=== PATIENT | male | born 1945 | race Caucasian/White ===

== ENCOUNTER 2025-04-21 03:20 | Inpatient (IN) | payer BC, MEDICARE, OTHER ==
[2025-04-21] MEDS ORDERED: dilTIAZem 25 MG/5 ML VIAL ONE (04:01)
[2025-04-21 04:05] LABS: #Basophils 0.04 10x3/uL (0.0-0.2); #Eosinophils 0.33 10x3/uL (0.0-0.7); #Monocytes 0.88 10x3/uL (0.11-0.59); #Neutrophils 6.45 10x3/uL (1.40-6.50); %Basophils 0.4 % (0.0-1.0); %Eosinophils 3.5 % (0.0-10.0); %Lymphocytes 19.2 % (21.0-51.0); %Monocytes 9.2 % (0.0-10.0); %Neutrophils 67.5 % (42.0-75.0); Hematocrit 48.0 % (42.0-52.0); Hemoglobin 15.9 g/dL (14.0-18.0); Mean Corpuscular Hemoglobin 28.4 pg (27.0-31.0); Mean Corpuscular Volume 85.9 fL (78.0-98.0); Platelet Count 204 10x3/uL (130-400); Red Blood Cell (RBC) Count 5.59 mill/uL (4.70-6.10); White Blood Cell (WBC) Count 9.56 10x3/uL (4.8-10.8)
[2025-04-21] MEDS ORDERED: diphenhydrAMINE 50 MG/ML VIAL ONE (04:12)
[2025-04-21] MEDS ORDERED: Metoclopramide HCl 10 MG (2 mL) VIAL ONE (04:12)
[2025-04-21 04:22] LABS: INR-International Normal Ratio 1.2; Prothrombin Time 15.2 sec (12.0-14.7)
[2025-04-21 04:23] LABS: PTT 32.9 sec (22.9-36.1)
[2025-04-21 04:39] LABS: Magnesium 2.2 mg/dL (1.6-2.6)
[2025-04-21 04:40] LABS: ALT (SGPT) 30 U/L (Less than 45); AST (SGOT) 32 U/L (11-34); Albumin 4.1 g/dL (3.1-4.5); Alkaline Phosphatase 55 U/L (40-110); Anion Gap 18 mmol/L (10-20); BUN (Urea Nitrogen) 35 mg/dL (8.4-25.7); Bilirubin, Total 0.5 mg/dL (0.3-1.2); Calc. Creatinine Clearance 0 mL/min (70-130); Calcium 9.5 mg/dL (7.8-10.44); Carbon Dioxide 20 mmol/L (23-31); Chloride 109 mmol/L (98-107); Globulin 3.0 g/dL (2.4-3.5); Glucose 201 mg/dL (83-110); Potassium 4.5 mmol/L (3.5-5.1); Sodium 142 mmol/L (136-145)
[2025-04-21] MEDS ORDERED: Acetaminophen 325 MG TAB PO PRN (06:03)
[2025-04-21] MEDS ORDERED: Guaifenesin DM 100-10/5 ML UDCUP PO PRN (06:03)
[2025-04-21] MEDS ORDERED: Calcium Carbonate 500 MG ChewTAB PO PRN (06:03)
[2025-04-21] MEDS ORDERED: Melatonin 3 MG TAB PO PRN (06:03)
[2025-04-21] MEDS ORDERED: Senokot S 8.6-50 MG TAB PO PRN (06:03)
[2025-04-21] MEDS ORDERED: Enoxaparin 80 MG (0.8 mL) SYRINGE ONE (06:11)
[2025-04-21] MEDS ORDERED: Enoxaparin 100 MG (1 mL) SYRINGE ONE (06:12)
[2025-04-21] MEDS ORDERED: Magnesium Sulfate In Water 4 GM in Premix 1 BAG IVPB PRN (06:15)
[2025-04-21] MEDS ORDERED: PHOS-NAK 1 PKT PACK PO PRN (06:15)
[2025-04-21] MEDS ORDERED: Electrolyte Replacement Protocol 1 EACH FS SCH (06:15)
[2025-04-21] MEDS ORDERED: Potassium Chloride 20 MEQ in Premix 1 BAG IVPB PRN (06:15)
[2025-04-21] MEDS ORDERED: Aspirin Chewable 81 MG TAB ONE (07:25)
[2025-04-21] MEDS ORDERED: Glucagon 1 MG/ML KIT IM PRN (08:42)
[2025-04-21] MEDS ORDERED: Dextrose 50% Abboject 50 ML SYRINGE SLOW IVP PRN (08:42)
[2025-04-21] MEDS: Aspirin 81 mg Enteric Coated Tablet PO SCH (09:23)
[2025-04-21] MEDS ORDERED: Iopamidol 370 76% 100 ML VIAL ONE (09:45)
[2025-04-21 09:46] VITALS: BMI 28.1
[2025-04-21] MEDS: Losartan 25 MG TAB PO SCH (09:56)
[2025-04-21] MEDS: HYDROcodone/Acetaminophen 5/325 mg Tablet PO PRN (12:23)
[2025-04-21] MEDS: Enoxaparin 100 MG (1 mL) SYRINGE SC SCH (16:35)
[2025-04-21] MEDS: Carvedilol 25 MG TAB PO SCH (16:36)
[2025-04-21] MEDS: Rosuvastatin 20 MG TAB PO SCH (20:46)
[2025-04-21] MEDS: Magnesium Oxide 400 MG TAB PO SCH (20:47)
[2025-04-22 04:39] LABS: #Basophils 0.05 10x3/uL (0.0-0.2); #Eosinophils 0.27 10x3/uL (0.0-0.7); #Monocytes 0.80 10x3/uL (0.11-0.59); #Neutrophils 4.96 10x3/uL (1.40-6.50); %Basophils 0.6 % (0.0-1.0); %Eosinophils 3.4 % (0.0-10.0); %Lymphocytes 22.1 % (21.0-51.0); %Monocytes 10.2 % (0.0-10.0); %Neutrophils 63.2 % (42.0-75.0); Hematocrit 41.4 % (42.0-52.0); Hemoglobin 13.2 g/dL (14.0-18.0); Mean Corpuscular Hemoglobin 28.6 pg (27.0-31.0); Mean Corpuscular Volume 89.6 fL (78.0-98.0); Platelet Count 146 10x3/uL (130-400); Red Blood Cell (RBC) Count 4.62 mill/uL (4.70-6.10); White Blood Cell (WBC) Count 7.86 10x3/uL (4.8-10.8)
[2025-04-22 04:53] LABS: ALT (SGPT) 25 U/L (Less than 45); AST (SGOT) 43 U/L (11-34); Albumin 3.4 g/dL (3.1-4.5); Alkaline Phosphatase 44 U/L (40-110); Anion Gap 11 mmol/L (10-20); BUN (Urea Nitrogen) 28 mg/dL (8.4-25.7); Bilirubin, Total 0.5 mg/dL (0.3-1.2); Calc. Creatinine Clearance 52 mL/min (70-130); Calcium 8.4 mg/dL (7.8-10.44); Carbon Dioxide 24 mmol/L (23-31); Chloride 112 mmol/L (98-107); Globulin 2.6 g/dL (2.4-3.5); Glucose 189 mg/dL (83-110); Potassium 4.3 mmol/L (3.5-5.1); Sodium 143 mmol/L (136-145)
[2025-04-22] MEDS: Furosemide 40 MG TAB PO SCH (09:44)
[2025-04-22] MEDS: Aspirin 81 mg Enteric Coated Tablet PO SCH (09:44)
[2025-04-22] MEDS: Insulin Glargine 30 UNITS/0.3 ML VIAL SC SCH (09:45)
[2025-04-22] MEDS: Cholecalciferol 1,000 UNITS (25 MCG) TAB PO SCH (10:06)
[2025-04-22] MEDS: Enoxaparin 100 MG (1 mL) SYRINGE SC SCH (16:19)
[2025-04-23 04:42] LABS: #Basophils 0.04 10x3/uL (0.0-0.2); #Eosinophils 0.27 10x3/uL (0.0-0.7); #Monocytes 0.74 10x3/uL (0.11-0.59); #Neutrophils 4.97 10x3/uL (1.40-6.50); %Basophils 0.5 % (0.0-1.0); %Eosinophils 3.5 % (0.0-10.0); %Lymphocytes 21.4 % (21.0-51.0); %Monocytes 9.6 % (0.0-10.0); %Neutrophils 64.6 % (42.0-75.0); Hematocrit 42.4 % (42.0-52.0); Hemoglobin 13.8 g/dL (14.0-18.0); Mean Corpuscular Hemoglobin 28.6 pg (27.0-31.0); Mean Corpuscular Volume 88.0 fL (78.0-98.0); Platelet Count 149 10x3/uL (130-400); Red Blood Cell (RBC) Count 4.82 mill/uL (4.70-6.10); White Blood Cell (WBC) Count 7.70 10x3/uL (4.8-10.8)
[2025-04-23 04:59] LABS: ALT (SGPT) 22 U/L (Less than 45); AST (SGOT) 30 U/L (11-34); Albumin 3.5 g/dL (3.1-4.5); Alkaline Phosphatase 45 U/L (40-110); Anion Gap 12 mmol/L (10-20); BUN (Urea Nitrogen) 21 mg/dL (8.4-25.7); Bilirubin, Total 0.7 mg/dL (0.3-1.2); Calc. Creatinine Clearance 60 mL/min (70-130); Calcium 8.3 mg/dL (7.8-10.44); Carbon Dioxide 23 mmol/L (23-31); Chloride 110 mmol/L (98-107); Globulin 2.6 g/dL (2.4-3.5); Glucose 129 mg/dL (83-110); Potassium 3.6 mmol/L (3.5-5.1); Sodium 141 mmol/L (136-145)
[2025-04-23] MEDS ORDERED: Adenosine 6 mg (2 mL) VIAL ONE (06:09)
[2025-04-23] MEDS ORDERED: Heparin 10,000 UNITS/ 10 ML VIAL ONE (06:09)
[2025-04-23] MEDS ORDERED: Lidocaine 1% (PF) 30 ML VIAL ONE (06:10)
[2025-04-23] MEDS ORDERED: Nitroglycerin 50 MG/250 ML BOT 250 ML ONE (06:10)
[2025-04-23] MEDS ORDERED: Nitroglycerin 0.4 MG TAB (25 Tab Bottle) SL PRN (07:55)
[2025-04-23] MEDS ORDERED: Acetaminophen/Codeine 30-300mg Tablet PO PRN (07:55)
[2025-04-23 11:10] VITALS: BP 126/60; TEMP 97.8
[2025-04-23] MEDS ORDERED: Iopamidol 370 76% 100 ML VIAL ONE (12:52)
[2025-04-24] MEDS ORDERED: Apixaban 5 MG TAB PO SCH (09:00)
[2025-05-03 12:57] LABS: BLOX Site Pulmonary artery
[2025-05-03 12:58] LABS: BLOX Site Aorta
== END 2025-04-23 15:15 | disposition home or self-care (01) | DRG 74 ==
LOC: ERS 03:20 → ERHOLD 06:07 → 2NO 08:59
PROVIDERS: ADMIT Internal Medicine; ATTEND Internal Medicine
PROC: 4A023N6 Measurement of Cardiac Sampling and Pressure, Right Heart, Percutaneous Approach (ICD-10-PCS; principal; 2025-04-23)
PROC: B2111ZZ Fluoroscopy of Multiple Coronary Arteries using Low Osmolar Contrast (ICD-10-PCS; 2025-04-23)
DX: G50.0 Trigeminal neuralgia (principal); I24.89 Other forms of acute ischemic heart disease; I48.91 Unspecified atrial fibrillation; E11.9 Type 2 diabetes mellitus without complications; I11.0 Hypertensive heart disease with heart failure; E78.5 Hyperlipidemia, unspecified; I44.7 Left bundle-branch block, unspecified; Z96.653 Presence of artificial knee joint, bilateral; Z90.49 Acquired absence of other specified parts of digestive tract; I50.9 Heart failure, unspecified; K80.20 Calculus of gallbladder without cholecystitis without obstruction; Z79.899 Other long term (current) drug therapy; Z79.82 Long term (current) use of aspirin; Z79.84 Long term (current) use of oral hypoglycemic drugs; G47.33 Obstructive sleep apnea (adult) (pediatric); Z87.442 Personal history of urinary calculi; Z98.42 Cataract extraction status, left eye; Z98.41 Cataract extraction status, right eye; Z83.3 Family history of diabetes mellitus; Z82.49 Family history of ischemic heart disease and other diseases of the circulatory system; Z87.891 Personal history of nicotine dependence; I35.0 Nonrheumatic aortic (valve) stenosis; G43.709 Chronic migraine without aura, not intractable, without status migrainosus; I25.10 Atherosclerotic heart disease of native coronary artery without angina pectoris; Z79.4 Long term (current) use of insulin
CPT/HCPCS: 36415; 36416; 70450; 70496; 70498; 71045; 71275; 74174; 80053; 82810; 83735; 84443; 84484; 85018; 85025; 85610; 85730; 93005; 93306; 93456; 96365; 96366; 96372; 96375; 99152; 99153; C1751; C1769; C1887; C1894; J0153; J0282; J1200; J1644; J1650; J1815; J2003; J2250; J2272; J2765; J3010; J7030; Q9967